=== PATIENT | male | born 1965 | race Caucasian/White ===

== ENCOUNTER 2022-09-01 08:18 | Outpatient (OUT) | payer OTHER, SELFPAY ==
--- NOTE | 2022-09-01 08:14 | XR_ITS ---
The [address] [address] Patient Name: KAREN WOLFE MRN: [id number] date: 1965 Sex: M Assigned Patient Location: MRI Current Patient Location: MRI Accession/Order Number: [id number] Exam Date: 09/01/2022 08:16 Report Date: 09/01/2022 08:29 At the request of: SILVIO ROGER Procedure: XR abdomen 1V EXAMINATION: XR abdomen 1V HISTORY: MRI screening, abdominal implant COMPARISON: No relevant comparison available. FINDINGS: BOWEL GAS PATTERN: No abnormal dilation or deviation. Metallic foreign body projects over the pelvis consistent with a known surgically placed clip. Moderate amount of stool in the descending colon CALCIFICATIONS: None significant. OTHER: Negative. No abnormal gaseous collections. IMPRESSION: Metallic clip sigmoid colon/rectum Electronically authenticated by: ELIF MONZON Date: 09/01/2022 08:29
--- NOTE | 2022-09-01 08:46 | PC.NURSE ---
Pt stated that he had a colonoscopy one week ago with Cook clip placed after polypectomy. Discussed this with tire technicianclementine Pace and Dr Hogan . Pt recommended to hold off for 5 weeks after clip placement to schedule MRI. Pt made aware that i will be contacting him to reschedule once insurance approval is extended.
== END 2022-09-01 08:19 | disposition home or self-care (01) ==
PROVIDERS: Radiology Diagnostic Radiology; PCP Personal Emergency Response Attendant; Visit Provider Personal Emergency Response Attendant
DX: M25.552 Pain in left hip (principal)
CPT/HCPCS: 74018

== ENCOUNTER 2022-10-04 07:36 | Day surgery (SDC) | payer OTHER, SELFPAY ==
--- NOTE | 2022-10-04 07:46 | FL_ITS ---
[address] [address] Patient Name: KAREN WOLFE MRN: [id number] date: 1965 Sex: M Assigned Patient Location: MRI Current Patient Location: MRI Accession/Order Number: [id number] Exam Date: 10/04/2022 08:15 Report Date: 10/04/2022 09:12 At the request of: SILVIO ROGER Procedure: FL arthrogram hip LT EXAMINATION: FL arthrogram hip LT HISTORY: Left Hip Pain COMPARISON: No relevant comparison available. TECHNIQUE: An arthrogram was performed under fluoroscopic guidance using non-ionic contrast material in the usual sterile manner after obtaining informed consent. Standard level fluoroscopic mode of operation utilized. FINDINGS: JOINT: Left hip NEEDLE: 25 gauge, 3.5 spinal needle. MEDICATION: 2 mL buffered 1% lidocaine for subcutaneous anesthesia. Approximately 8 mL injected into joint space consisting of a mixture of 5 mL Omnipaque-300, 5 mL 1% Xylocaine, 40 mg Kenalog, and 0.2 mL Dotarem. TECHNIQUE: Anterior approach under fluoroscopic guidance. CLINICAL: Decreased pain following the injection. COMPLICATIONS: None. OTHER: Negative. FL/FL arthrogram hip LT IMPRESSION: 1. Technically successful arthrogram without complication. 2. Please see separate MRI arthrogram report. Electronically authenticated by: LEANA GRAYSON Date: 10/04/2022 09:12
--- NOTE | 2022-10-04 07:47 | MR_ITS ---
The [address] [address] Patient Name: KAREN WOLFE MRN: [id number] date: 1965 Sex: M Assigned Patient Location: MRI Current Patient Location: MRI Accession/Order Number: [id number] Exam Date: 10/04/2022 08:55 Report Date: 10/04/2022 10:27 At the request of: SILVIO ROGER Procedure: MR hip LT wo con EXAM: MR hip LT w con REASON FOR EXAM: Left Hip Pain. TECHNIQUE: Multiplanar, multisequence imaging of the left hip was performed following the uneventful intra-articular administration of contrast. See separate arthrogram report for procedure description. COMPARISON: Arthrogram images same date. FINDINGS: On small [id number] imaging of the left hip, left femur is well seated within the acetabulum. No fracture or AVN identified. No significant bony overgrowth of the superior lateral femoral head neck junction identified. There is diminutive appearance of the anterior superior labrum suggesting labral degeneration. Diffuse intermediate grade chondrosis of the femoral acetabular cartilage. There is more focal high-grade chondrosis involving the anterior acetabulum. No intra-articular body identified. Mild left gluteal insertional tendinosis without discrete tear. The remaining visualized left hip regional musculature is unremarkable. On large [id number] imaging, mild degenerative disc disease the visualized lower lumbar spine. The visualized sacroiliac joints are congruent without edema or effusion. The pubic symphysis is congruent. The right femur is well seated within the acetabulum without fracture or AVN. Mild joint space narrowing. No joint effusion. The right hip regional musculature is without discrete muscle strain or tendon tear. Limited evaluation of the pelvic viscera is without acute or suspicious abnormality. MR/MR hip LT wo con IMPRESSION: 1. Moderate to severe left hip osteoarthritis with degenerative tearing of the anterior superior labrum. No fracture or AVN. 2. Mild left gluteal insertional tendinosis without tear. 3. Mild degenerative disc disease the visualized lower lumbar spine, characterized. 4. Mild to moderate right hip osteoarthritis without fracture or AVN. Electronically authenticated by: SABINO OLSEN Date: 10/04/2022 10:27
--- NOTE | 2022-10-04 07:48 | FL_ITS ---
[address] [address] Patient Name: KAREN WOLFE MRN: [id number] date: 1965 Sex: M Assigned Patient Location: MRI Current Patient Location: MRI Accession/Order Number: [id number] Exam Date: 10/04/2022 08:15 Report Date: 10/04/2022 09:12 At the request of: SILVIO ROGER Procedure: FL guided needle placement EXAMINATION: FL arthrogram hip LT HISTORY: Left Hip Pain COMPARISON: No relevant comparison available. TECHNIQUE: An arthrogram was performed under fluoroscopic guidance using non-ionic contrast material in the usual sterile manner after obtaining informed consent. Standard level fluoroscopic mode of operation utilized. FINDINGS: JOINT: Left hip NEEDLE: 25 gauge, 3.5 spinal needle. MEDICATION: 2 mL buffered 1% lidocaine for subcutaneous anesthesia. Approximately 8 mL injected into joint space consisting of a mixture of 5 mL Omnipaque-300, 5 mL 1% Xylocaine, 40 mg Kenalog, and 0.2 mL Dotarem. TECHNIQUE: Anterior approach under fluoroscopic guidance. CLINICAL: Decreased pain following the injection. COMPLICATIONS: None. OTHER: Negative. FL/FL guided needle placement IMPRESSION: 1. Technically successful arthrogram without complication. 2. Please see separate MRI arthrogram report. Electronically authenticated by: LEANA GRAYSON Date: 10/04/2022 09:12
[2022-10-04] MEDS: LIDOCAINE HCL 15 ML, SODIUM BICARBONATE 2 MEQ INJ (08:45)
[2022-10-04] MEDS: TRIAMCINOLONE ACETONIDE 40 MG/ML VIAL INJ (08:45)
== END 2022-10-04 09:00 | disposition home or self-care (01) ==
PROVIDERS: Radiology Diagnostic Radiology; PCP Personal Emergency Response Attendant; Visit Provider Personal Emergency Response Attendant
DX: M25.552 Pain in left hip (principal); M16.0 Bilateral primary osteoarthritis of hip; M51.36 Other intervertebral disc degeneration, lumbar region; S73.102A Unspecified sprain of left hip, initial encounter
CPT/HCPCS: 27093; 73525; 73721; 73722; 77002; A9575; Q9967